=== PATIENT | female | born 1990 | race Caucasian/White ===

== ENCOUNTER 2016-09-15 14:29 | Emergency (ER) | payer MEDICAID ==
[~2016-09-15] VITALS: Ht 167.6 cm; Wt 68.0 kg
[~2016-09-15 14:29] MED LIST: AZIT500T2 PO; BENZ100 PO
[2016-09-15 14:32] VITALS: BP 167/64; PULSE 90; RESP 20; TEMP 97.8; O2SAT 97
[2016-09-15] MEDS ORDERED: SODIUM CHLOR 0.9% 1000 ML INJ 1,000 ML IV ONE (15:01)
[2016-09-15 15:05] VITALS: RESP 17; O2SAT 99
[2016-09-15] MEDS ORDERED: LORazepam 2 MG/ML VIAL IVS ONE (15:15)
[2016-09-15 16:16] LABS: AUTOMATED NEUTROPHIL # 4.1 TH/MM3 (1.8-7.7); BASOPHIL % 0.5 % (0.0-2.0); EOSINOPHIL # 0.1 TH/MM3 (0-0.4); EOSINOPHIL % 1.9 % (0.0-4.0); HEMATOCRIT 36.2 % (35.0-46.0); LYMPH % 30.4 % (9.0-44.0); MEAN CELL VOLUME 78.5 FL (80.0-100.0); MEAN CORPUSCULAR HEMOGLOBIN 25.8 PG (27.0-34.0); MEAN CORPUSCULAR HGB CONC 32.8 % (32.0-36.0); MONO % 6.6 % (0.0-8.0); NEUT % 60.6 % (16.0-70.0); PLATELET COUNT 218 TH/MM3 (150-450); RED BLOOD COUNT 4.61 MIL/MM3 (4.00-5.30); WHITE BLOOD COUNT 6.7 TH/MM3 (4.0-11.0)
--- NOTE | 2016-09-15 16:23 | PD ---
HPI Chief Complaint: Seizure Time Seen by Provider: 16:18 Travel History International Travel<30 days: No Contact w/Intl Traveler<30days: No Traveled to known affect area: No History of Present Illness HPI 26-year-old female that presents to the ED for evaluation of seizure. Per patient she has a history of seizures since been on a cramps when she was with her first daughter. Per patient is happened about 3 years ago. Per patient during that time she had seizures and she was put on medication but they went away. Per patient she has not had a seizure until on September 02 when she went to [facility] in or Saturday she did a full workup on her and told her that she had some sort of artery problem on her right brain as well as having a seizure history and give her some medication and told to follow with her doctor. Per patient she has not follow with her doctor. Per patient she ran out of her medication already. She denies any chest pain or shortness of breath. Per patient and significant other she had a full grand mal seizure earlier today. Per significant other last about 2 minutes. Patient had loss of consciousness, incontinence, and full movement of the upper and lower extremities. No lacerations or head injury reported. Patient takes no blood thinners. Patient is back to normal now. Patient came here for evaluation of this. She denies any pain. She states that she was put on Ativan. [facility] Past Medical History Hx Anticoagulant Therapy: No Asthma: Yes Cardiovascular Problems: No Chemotherapy: No Cerebrovascular Accident: No Diabetes: No Diminished Hearing: No Respiratory: Yes (Asthma) Seizures: Yes Tetanus Vaccination: > 5 Years ?: Unknown LMP: had a baby in June and has not had any since then. Past Surgical History Hysterectomy: No Social History Alcohol Use: Yes (ocassionally ) Tobacco Use: No Substance Use: No Allergies-Medications (Allergen,Severity, Reaction): Coded Allergies: No Known Allergies (Unverified , 09/15/16) Reported Meds & Prescriptions Reported Meds & Active Scripts Active Keppra (Levetiracetam) 500 Mg Tab 500 Mg PO BID Review of Systems General / Constitutional: No: Fever, Chills, Weight Gain, Weight Loss, Other Eyes: No: Diploplia, Blurred Vision, Photophobia, Drainage, Redness, Foreign Body Sensation, Pain, Tearing, Blind Spots, Visual changes, Blindness, Other HENT: No: Headaches, Vertigo, Lightheadedness, Sore Throat, Rhinitis, Rhinorrhea, Congestion, Nosebleed, Neck Stiffness, Neck Pain, Masses, Gingival Bleeding, Dental Difficulties, Ear Discharge, Earache, Other Cardiovascular: No: Chest Pain or Discomfort, Palpitations, Irregular Rhythm, Tachycardia, Diaphoresis, Syncope, Dyspnea on exertion, Varicosities, Edema, Cyanosis, Varicosities, Phlebitis, Claudication, Other Respiratory: No: Cough, Shortness of Breath, Wheezing, Sneezing, Orthopnea, Hemoptysis, Stridor, Night Sweats, Pleuritic Pain, Other Gastrointestinal: No: Nausea, Vomiting, Diarrhea, Abdominal Pain, Hematemesis, Hematochezia, Constipation, Changes in Bowel Habits, Indigestion, Dysphagia, Loss of Appetite, Other Genitourinary: No: Urgency, Frequency, Dysuria, Nocturia, Hematuria, Decreased Urinary Output, Oliguria, Hesitancy, Dribbling, Incontinence, Pelvic Pain, Flank Pain, Dyspareunia, Discharge, Dysmenorrhea, Menorrhagia, Metorrhagia, Vaginal Bleeding, Other Musculoskeletal: No: Myalgias, Arthralgias, Limited ROM, Weakness, Cramping, Edema, Pain, Atrophy, Other Skin: No Rash, No Itching, No Dryness, No Lumps, No Hives, No Change in Pigmentation, No Change in nails, No Alopecia, No Lesions, No Breast Lumps, No Breast Tenderness, No Breast Swelling, No Other Neurologic: Positive: Seizures, No: Weakness, Dizziness, Syncope, Focal Abnormalities, Coordination Problem, Tremor, Ataxia, Headache, Change in Mentation, Slurred Speech, Paresthesia, Incontinence, Sensory Disturbance, Other Psychiatric: No: Anxiety, Depression, Suicidal Ideations, Disorder of Thought, Mood Disorder, Substance Abuse, Homicidal Ideation, Other Endocrine: No: Heat Intolerance, Cold Intolerance, Polyuria, Polydipsia, Other Hematologic/Lymphatic: No: Easy Bruising, Lymph Node Enlargement, Other Physical Exam Narrative GENERAL: SKIN: Warm and dry. HEAD: Atraumatic. Normocephalic. EYES: Pupils equal and round 4 mm reactive to light and accommodation. No scleral icterus. No injection or drainage. ENT: No nasal bleeding or discharge. Mucous membranes pink and moist. Tongue is midline. No uvula deviation. NECK: Trachea midline. No JVD. CARDIOVASCULAR: Regular rate and rhythm. No murmurs, S3, S4. RESPIRATORY: No accessory muscle use. Clear to auscultation. Breath sounds equal bilaterally. GASTROINTESTINAL: Abdomen soft, non-tender, nondistended. Hepatic and splenic margins not palpable. MUSCULOSKELETAL: Extremities without clubbing, cyanosis, or edema. No obvious deformities. Full range of motion of the upper and lower extremities bilaterally. 2+ pulses bilaterally. NEUROLOGICAL: Awake and alert. No obvious cranial nerve deficits. Motor grossly within normal limits. Five out of 5 muscle strength in the arms and legs. Normal speech. PSYCHIATRIC: Appropriate mood and affect; insight and judgment normal. Data Data Last Documented VS Vital Signs Date Time Temp Pulse Resp B/P Pulse Ox O2 Delivery O2 Flow Rate FiO2 09/15/16 15:10 78 17 99 Room Air 09/15/16 14:32 97.8 167/64 Orders Complete Blood Count With Diff (09/15/16 15:) Basic Metabolic Panel (Bmp) (09/15/16 15:01) Alcohol (Ethanol) (09/15/16 15:01) Drug Screen, Random Urine (09/15/16 15:01) Blood Glucose (09/15/16 15:01) Ecg Monitoring (09/15/16 15:01) Iv Access Insert/Monitor (09/15/16 15:) Oximetry (09/15/16 15:01) Sodium Chlor 0.9% 1000 Ml Inj (Ns 1000 M (09/15/16 15:01) Lorazepam Inj (Ativan Inj) (09/15/16 15:15) Urinalysis - C+S If Indicated (09/15/16 15:01) Ed Urine Pregnancytest Poc (09/15/16 16:21) Labs Laboratory Tests Test 09/15/16 09/15/16 15:16 17:10 White Blood Count 6.7 TH/MM3 Red Blood Count 4.61 MIL/MM3 Hemoglobin 11.9 GM/DL Hematocrit 36.2 % Mean Corpuscular Volume 78.5 FL Mean Corpuscular Hemoglobin 25.8 PG Mean Corpuscular Hemoglobin 32.8 % Concent Red Cell Distribution Width 15.0 % Platelet Count 218 TH/MM3 Mean Platelet Volume 9.1 FL Neutrophils (%) (Auto) 60.6 % Lymphocytes (%) (Auto) 30.4 % Monocytes (%) (Auto) 6.6 % Eosinophils (%) (Auto) 1.9 % Basophils (%) (Auto) 0.5 % Neutrophils # (Auto) 4.1 TH/MM3 Lymphocytes # (Auto) 2.0 TH/MM3 Monocytes # (Auto) 0.4 TH/MM3 Eosinophils # (Auto) 0.1 TH/MM3 Basophils # (Auto) 0.0 TH/MM3 CBC Comment AUTO DIFF Differential Comment AUTO DIFF CONFIRMED Platelet Estimate NORMAL Platelet Morphology Comment NORMAL Sodium Level 139 MEQ/L Potassium Level 4.2 MEQ/L Chloride Level 103 MEQ/L Carbon Dioxide Level 29.4 MEQ/L Anion Gap 7 MEQ/L Blood Urea Nitrogen 12 MG/DL Creatinine 0.76 MG/DL Estimat Glomerular Filtration 93 ML/MIN Rate Random Glucose 89 MG/DL Calcium Level 8.7 MG/DL Ethyl Alcohol Level LESS THAN 3 MG/DL Urine Color LIGHT-YELLOW Urine Turbidity CLEAR Urine pH 5.5 Urine Specific [place] 1.004 Urine Protein 100 mg/dL Urine Glucose (UA) NEG mg/dL Urine Ketones NEG mg/dL Urine Occult Blood NEG Urine Nitrite NEG Urine Bilirubin NEG Urine Urobilinogen LESS THAN 2.0 MG/DL Urine Leukocyte Esterase NEG Urine RBC LESS THAN 1 /hpf Urine WBC 1 /hpf Urine Squamous Epithelial 1 /hpf Cells Microscopic Urinalysis Comment CULT NOT INDICATED MDM Medical Decision Making Medical Screen Exam Complete: Yes Emergency Medical Condition: Yes Medical Record Reviewed: Yes Interpretation(s) CBC & BMP Diagram 09/15/16 15:16 Alcohol negative Differential Diagnosis Seizure disorder versus seizure versus electron abnormality versus aneurysm Narrative Course 26-year-old female that presents to the ED for evaluation of possible seizure. Patient was properly examined and was found to have signs and symptoms consistent with appears to be seizure. Patient probably had a grand mal seizure today. She currently takes no medications. Last seizure was in August at a different facility. Medical records from this facility will be obtained. Patient was given Ativan here. Labs were drawn. Labs showed no sign of acute disease. I was able to obtain records from a [facility] where apparently when she was there she did have multiple seizures and one of the seizures ended up having V. tach as well where she had to have ACLS. 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 She was seen by neurology and had MRIs and EEGs. She was put on Keppra by neurology. This was discussed with my attending who recommends discharge with Her and follow-up with neurologist per monitor for a was ordered for her as she does require some follow-up for this. She was given a short prescription for Keppra. She understands that she needs to follow-up. I told her that she needs to stop using drugs as this will increase her chances of seizures and can increase her chances of having cardiac disease as she had last time in which he needed ACLS to be performed. She agrees and understands. Follow-up with PCP. See ED worsening symptoms. Diagnosis Primary Impression: Seizure disorder Patient Instructions: General Instructions Additional Instructions: Take the Keppra as prescribed. Follow with neurologist. See ED worsening symptoms. Stop using drugs Med/Other Pt SpecificInfo: Prescription(s) given Scripts Levetiracetam (Keppra)500 Mg Qtd547 Mg PO BID #60 TAB Ref 0 Prov:Bhavesh Rosa MD 09/15/16 Disposition: 01 DISCHARGE HOME Condition: Stable Peyman Banks Sep 15, 2016 16:23
[2016-09-15 16:27] LABS: HEMO FLAGS AUTO DIFF
[2016-09-15 16:36] LABS: ANION GAP 7 MEQ/L (5-15); BICARBONATE 29.4 MEQ/L (21.0-32.0); BLOOD UREA NITROGEN 12 MG/DL (7-18); CHLORIDE 103 MEQ/L (98-107); GLOMERULAR FILTRATION RATE 93 ML/MIN (>89); POTASSIUM 4.2 MEQ/L (3.5-5.1); SODIUM (NA) 139 MEQ/L (136-145)
[2016-09-15 16:58] LABS: PLATELET ESTIMATE SMEAR NORMAL (NORMAL); PLATELET MORPHOLOGY NORMAL (NORMAL); SCAN/DIFF AUTO DIFF CONFIRMED
[2016-09-15 17:40] LABS: BLOOD, URINE NEG (NEG); GLUCOSE,URINE NEG (NEG); KETONE, URINE NEG (NEG); NITRITE,URINE NEG (NEG); PH, URINE 5.5 (5.0-8.5); SQUAMOUS EPITHELIAL CELL URINE 1 /hpf (0-5); URINE COLOR LIGHT-YELLOW (YELLW/STRAW)
[2016-09-15 17:42] LABS: COMMENT (UR) CULT NOT INDICATED; CULTURE IF INDICATED CULT NOT INDICATED
[2016-09-15] MEDS ORDERED: LEVE500 PO (17:43)
[2016-09-15 17:47] LABS: AMPHETAMINE, URINE NEG (NEG); BARBITURATES, URINE NEG (NEG); COCAINE, URINE POS (NEG)
[2016-09-15] MEDS ORDERED: levETIRAcetam 500 MG TAB PO ONE (18:00)
[2016-09-15 18:05] VITALS: BP 120/81; TEMP 98.1
== END 2016-09-15 18:10 | disposition home or self-care (01) ==
LOC: NEPE 14:29
DX: G40.909 Epilepsy, unspecified, not intractable, without status epilepticus (principal); F14.90 Cocaine use, unspecified, uncomplicated
CPT/HCPCS: 80048; 80307; 81001; 84703; 85025; 96361; 96374; 99284; J2060; J7030